=== PATIENT | male | born 1960 | race Caucasian/White ===

== ENCOUNTER 2023-03-06 11:59 | Emergency (ER) | payer OTHER, SELFPAY ==
--- NOTE | 2023-03-06 12:05 | ED.URI ---
HPI - URI/Sore Throat General Chief Complaint: Upper Respiratory Infection Stated Complaint: Chest Congestion Source: patient and RN notes reviewed History of Present Illness HPI Narrative: 62-year-old male presents to urgent care with complaints of a lingering cough last days. Patient states he has a dry hacking cough and will intermittently cough up phlegm. Patient states he has been taking Sudafed daily. Patient states in the middle of the night he is waking up sweating and will have coughing fits that last over an hour in the middle of the night. Reports some congestion as well. Pt denies any SOB, chest pain, vomiting, or any other injuries. Related Data Home Medications Medication Instructions Recorded Confirmed amlodipine 5 mg tablet mg 03/06/23 Allergies Allergy/AdvReac Type Severity Reaction Status Date / Time No Known Allergies Allergy Verified 03/06/23 12:07 Review of Systems Review of Systems: Pertinent positives and pertinent negatives per HPI. PMFSH Comments At the time of my signature, I reviewed and agree with the nursing past medical, surgical, social, and family history. There is no relevant family history pertinent to the patient complaint. Exam Narrative: GENERAL: This is a well-nourished, well-developed patient, in no apparent distress. HEAD: normocephalic, atraumatic. EYES: Sclera clear/white. Vision is grossly intact. EARS: External ears normal, auditory canals clear and without drainage, TMs normal without perforation. Hearing grossly intact. NOSE: External nose normal with no obvious nasal discharge, nares without redness, no rhinorrhea. THROAT: Mucous membranes moist, posterior pharynx clear. NECK: Neck supple, non-tender without lymphadenopathy, masses or thyromegaly. CARDIOVASCULAR: Regular rate and rhythm without murmurs, gallops, or rubs. RESPIRATORY: Rales noted left lower lobe. SKIN: warm, intact with no suspicious lesions or rash, good texture and turgor. NEURO: awake, alert, and oriented to person, place and time. There were no obvious focal neurologic abnormalities. EXTREMITIES: No clubbing, cyanosis, or edema. No joint tenderness, effusion, or edema noted. BACK: Nontender without deformity or crepitance. No flank tenderness. Course Course Level of Care: Express Care Visit Vital Signs Vital signs: Reviewed MDM - URI/Sore Throat MDM Narrative Medical decision making narrative: Take steroids as directed. May use the inhaler every 4-6 hours as needed for coughing. Increase fluids at home. Avoid any and all smoke. May use a humidifier in the bedroom. Increase your Vitamin C. Follow-up with personal physician in 2-5 days. Differential Diagnosis Differential diagnosis: Likely upper respiratory infection, bronchitis and other (pna) Critical Care Time Critical Care Time Critical Care Time: No Discharge Plan Discharge Clinical Impression: Bronchitis Patient Disposition: Home, Self-Care Condition: Stable Instructions: Antibiotic Form, Acute Bronchitis (ED) Additional Instructions: Take steroids as directed. May use the inhaler every 4-6 hours as needed for coughing. Increase fluids at home. Avoid any and all smoke. May use a humidifier in the bedroom. Increase your Vitamin C. Follow-up with personal physician in 2-5 days. Prescriptions: New azithromycin [Zithromax Z-Morris] 250 mg tablet 250 mg PO DAILY 5 Days Qty: 5 0RF Rx Instructions: Take 500 mg on Day 1, 250 mg on Days 2-5. prednisone 20 mg tablet 40 mg PO DAILY 5 Days Qty: 10 0RF albuterol sulfate 90 mcg/actuation HFA aerosol inhaler 2 puff inhalation QID PRN (Reason: shortness of breath or wheezing) Qty: 8.5 0RF No Action amlodipine 5 mg tablet Follow-up/Referrals: Elo,Alejo Curran MD [Primary Care Provider] - Time of Disposition: 12:21
[2023-03-06 12:06] VITALS: BP 145/83; PULSE 73; RESP 20; TEMP 36.8; O2SAT 98
== END 2023-03-06 12:26 | disposition home or self-care (01) ==
PROVIDERS: Emergency Provider Nurse Practitioner Family; PCP Internal Medicine Infectious Disease
DX: J40 Bronchitis, not specified as acute or chronic (principal)
CPT/HCPCS: 99203; G0463